=== PATIENT | male | born 1960 | race African-American/Black ===

== ENCOUNTER 2017-01-31 19:35 | Emergency (ER) | payer MEDICARE, OTHER ==
[~2017-01-31] VITALS: Ht 182.9 cm; Wt 125.0 kg
[~2017-01-31 19:35] MED LIST: ALBU8I INH; ASPI81 CHEW; ATOR40TA49 PO; BROM2.5 PO; CARV12.5 PO; COLC1TAB7 PO; DIOV160T8 PO; ELVITAB PO; HALO5 PO; HCTZ25 PO; INDO50 PO; ISOS60 PO; NITR0.4S SL; OMEP20TA39 PO; SIME80 PO; SYMB160A INH
[2017-01-31 19:38] VITALS: BP 134/92; PULSE 85; RESP 18; TEMP 98.9; O2SAT 100
[2017-01-31 21:24] VITALS: BP 129/77; PULSE 80; RESP 20; O2SAT 99
--- NOTE | 2017-01-31 21:41 | PD ---
HPI Chief Complaint: Abdominal Pain Time Seen by Provider: 21:21 Travel History International Travel<30 days: No Contact w/Intl Traveler<30days: No Traveled to known affect area: No History of Present Illness HPI Patient comes in complaining of abdominal distention secondary to ascites. Patient states he last had this drained proximally 4 months ago. Patient states he went to see his HIV doctor today, but was unable to get seen so came to the emergency department secondary to having worsening ascites and bilateral lower extremity edema. Patient reports over the past week his legs been getting more swollen and starting to weep. Patient reports over the past 3 days his abdomen has become more swollen making it more difficult for him to breathe when he lays down flat. Patient states he is taking his Lasix as prescribed however has to have it drained from time to time. PFSH Past Medical History Hx Anticoagulant Therapy: Yes Arthritis: Yes (OA) Asthma: Yes Blood Disorders: No Bipolar Disorder: Yes Anxiety: Yes Depression: Yes Heart Rhythm Problems: Yes Cardiovascular Problems: Yes (HTN) High Cholesterol: Yes Chest Pain: No Congestive Heart Failure: Yes COPD: No Cerebrovascular Accident: Yes Coronary Artery Disease: Yes Diminished Hearing: No Endocrine: Yes Gout: Yes Genitourinary: No Hepatitis: No Hiatal Hernia: No Hypertension: Yes Immune Disorder: Yes (HIV+) Implanted Vascular Access Dvce: No Musculoskeletal: Yes (Right knee) Neurologic: Yes (CARPAL TUNNEL, LEFT HEMIPARESIS) Reproductive: No Respiratory: Yes Immunizations Current: Yes Migraines: No Myocardial Infarction: Yes Renal Failure: Yes Sleep Apnea: Yes Ulcer: No Past Surgical History Abdominal Surgery: No Cardiac Surgery: No Ear Surgery: No Endocrine Surgery: No Eye Surgery: Yes Genitourinary Surgery: No Gynecologic Surgery: No Neurologic Surgery: No Oral Surgery: No Thoracic Surgery: No Other Surgery: Yes (HERNIA) Social History Alcohol Use: Yes (occasionally) Tobacco Use: No Substance Use: Yes (cocaine) Allergies-Medications (Allergen,Severity, Reaction): Coded Allergies: wheat (Unverified Allergy, Severe, 01/31/17) Reported Meds & Prescriptions Reported Meds & Active Scripts Active Aspirin Low Strength (Aspirin) 81 Mg Chw 81 Mg CHEW DAILY 30 Days Indocin 50 Mg Cap (Indomethacin) 50 Mg Cap 50 Mg PO TID 10 Days Hydrodiuril (Hydrochlorothiazide) 25 Mg Tab 25 Mg PO DAILY 30 Days Lipitor 40 Mg Tab (Atorvastatin Calcium) 40 Mg Tab 40 Mg PO HS 30 Days Imdur 60 Mg (Isosorbide Mononitrate) 60 Mg Tabcr 30 Mg PO DAILY Colcrys (Colchicine) 0.6 Mg Tab 0.6 Mg PO DAILY Take 2 tablets by mouth immediately today Then take one table by mouth one hour later Start taking medication by mouth daily starting tomorrow Coreg 12.5 mg (Carvedilol) 12.5 Mg Tab 12.5 Mg PO BID 30 Days Diovan Hct 160/25 (HCTZ/Valsartan) Tab 1 Tab PO DAILY 30 Days Haldol (Haloperidol) 5 Mg Tab 5 Mg PO BID 10 Days Simethicone 80 Mg Chew 80 Mg PO QID Stribild (Bykfqlcpeurh-Cteeswbkjm-Tmtyro) 1 Tab Tab 1 Tab PO DAILY Symbicort (Budesonide/Formoterol Fumarate) 60 Puff Aero 2 Puff INH BID Ventolin Hfa (Albuterol Sulfate) 60 Puff/8 Gm Aero 2 Puff INH Q4H PRN Reported Parlodel (Bromocriptine Mesylate) 2.5 Mg Tab 2.5 Mg PO BID Hm Omeprazole (Omeprazole) 20 Mg Tab 40 Mg PO DAILY Nitrostat (Nitroglycerin) 0.4 Mg Subl 0.4 Mg SL PRN 1 TAB SL EVERY 5 MINS X 3 PRN CHEST PAIN Review of Systems Except as stated in HPI: all other systems reviewed are Neg Physical Exam Narrative GENERAL: Well-developed, overly nourished, in no acute distress, and non-ill appearing. SKIN: Focused skin assessment warm and dry. HEAD: Atraumatic. Normocephalic. EYES: Pupils equal and round. EOMI. No scleral icterus. No injection or drainage. ENT: No nasal bleeding or discharge. Mucous membranes pink and moist. NECK: Trachea midline. Supple. No nuclear rigidity. CARDIOVASCULAR: Regular rate and rhythm. No murmur appreciated. RESPIRATORY: No accessory muscle use. No respiratory distress. Clear to auscultation. Breath sounds equal bilaterally. GASTROINTESTINAL: Abdomen soft, non-tender, distended with ascites, and no guarding. Hepatic and splenic margins not palpable. No pulsatile mass. MUSCULOSKELETAL: No obvious deformities. No clubbing. No cyanosis. 3+ edema bilateral lower extremities. Full range of motion. NEUROLOGICAL: Awake and alert. No obvious cranial nerve deficits. Motor grossly within normal limits. Normal speech. PSYCHIATRIC: Appropriate mood and affect; insight and judgment normal. Data Data Last Documented VS Vital Signs Date Time Temp Pulse Resp B/P (MAP) Pulse Ox O2 Delivery O2 Flow Rate FiO2 02/01/17 01:36 82 18 134/78 (96) 98 Room Air 01/31/17 19:38 98.9 Orders Orders Basic Metabolic Panel (Bmp) (01/31/17 21:36) Complete Blood Count With Diff (01/31/17 21:36) Prothrombin Time / Inr (Pt) (01/31/17 21:36) Act Partial Throm Time (Ptt) (01/31/17 21:36) Iv Access Insert/Monitor (01/31/17 21:36) Ecg Monitoring (01/31/17 21:36) Oximetry (01/31/17 21:36) Sodium Chloride 0.9% Flush (Ns Flush) (01/31/17 21:45) Ed Discharge Order (02/01/17 01:29) Labs Laboratory Tests Test 01/31/17 22:20 White Blood Count 4.6 TH/MM3 Red Blood Count 3.98 MIL/MM3 Hemoglobin 13.3 GM/DL Hematocrit 41.1 % Mean Corpuscular Volume 103.2 FL Mean Corpuscular Hemoglobin 33.3 PG Mean Corpuscular Hemoglobin Concent 32.3 % Red Cell Distribution Width 17.4 % Platelet Count 194 TH/MM3 Mean Platelet Volume 8.2 FL Neutrophils (%) (Auto) 65.8 % Lymphocytes (%) (Auto) 21.4 % Monocytes (%) (Auto) 9.4 % Eosinophils (%) (Auto) 1.4 % Basophils (%) (Auto) 2.0 % Neutrophils # (Auto) 3.0 TH/MM3 Lymphocytes # (Auto) 1.0 TH/MM3 Monocytes # (Auto) 0.4 TH/MM3 Eosinophils # (Auto) 0.1 TH/MM3 Basophils # (Auto) 0.1 TH/MM3 CBC Comment DIFF FINAL Differential Comment Prothrombin Time 11.9 SEC Prothromb Time International Ratio 1.1 RATIO Activated Partial Thromboplast Time 23.8 SEC Blood Urea Nitrogen 34 MG/DL Creatinine 1.59 MG/DL Random Glucose 73 MG/DL Calcium Level 8.0 MG/DL Sodium Level 134 MEQ/L Potassium Level 5.1 MEQ/L Chloride Level 109 MEQ/L Carbon Dioxide Level 17.5 MEQ/L Anion Gap 8 MEQ/L Estimat Glomerular Filtration Rate 55 ML/MIN MDM Medical Decision Making Medical Screen Exam Complete: Yes Emergency Medical Condition: Yes Differential Diagnosis Electrolyte abnormality, ascites, dependent edema, other Narrative Course Patient was seen and examined. IV was established and patient was placed on cardiac monitoring. Initial laboratory values were ordered. Patient was signed out to Dr. Connors at the end of my shift. Please see her documentation for final diagnosis and disposition. Porfirio Do Jan 31, 2017 21:41
[2017-01-31 21:45] VITALS: RESP 18; O2SAT 98
[2017-01-31] MEDS ORDERED: SODIUM CHLORIDE 0.9% FLUSH 10 ML FLUSH IV FLUSH PRN (21:45)
[2017-01-31 22:31] LABS: BASOPHIL # 0.1 TH/MM3 (0-0.2); EOSINOPHIL # 0.1 TH/MM3 (0-0.4); EOSINOPHIL % 1.4 % (0.0-4.0); HEMATOCRIT 41.1 % (39.0-51.0); HEMO FLAGS DIFF FINAL; LYMPH % 21.4 % (9.0-44.0); MEAN CELL VOLUME 103.2 FL (80.0-100.0); MEAN CORPUSCULAR HEMOGLOBIN 33.3 PG (27.0-34.0); MEAN CORPUSCULAR HGB CONC 32.3 % (32.0-36.0); MONO % 9.4 % (0.0-8.0); NEUT % 65.8 % (16.0-70.0); PLATELET COUNT 194 TH/MM3 (150-450); RED BLOOD COUNT 3.98 MIL/MM3 (4.50-5.90); RED CELL DISTRIBUTION WIDTH 17.4 % (11.6-17.2); WHITE BLOOD COUNT 4.6 TH/MM3 (4.0-11.0)
[2017-01-31 22:48] LABS: BICARBONATE 17.5 MEQ/L (21.0-32.0); POTASSIUM 5.1 MEQ/L (3.5-5.1)
[2017-01-31 22:55] LABS: APTT (PATIENT) 23.8 SEC (24.3-30.1); INTERNATIONAL NORMALIZED RATIO 1.1 RATIO; PROTHROMBIN TIME - PATIENT 11.9 SEC (9.8-11.6)
--- NOTE | 2017-02-01 00:53 | PD ---
Physical Exam Narrative I, Dr. Connors, have reviewed the advance practice practitioner's documentation and am in agreement, met with the patient face to face, made the diagnosis, and the medical decision making was done by me. *My assessment and Findings: Ascites 56yo M with ascites here requesting paracentesis. Said he gets it done every 3- 4 months. Denies any fever, chest pain, sob, n/v. Pt is on the phone, chewing gum and not in distress. Vital signs stable. Labs reviewed, no leukocytosis. Platelet count normal at 194. Creatinine mildly elevated at 1.59 from 1.33. Pt is stable for outpatient paracentesis. I wrote an outpatient referral for paracentesis at radiology and pt can call for appointment tomorrow. Return precautions given. Data Data Last Documented VS Vital Signs Date Time Temp Pulse Resp B/P (MAP) Pulse Ox O2 Delivery O2 Flow Rate FiO2 01/31/17 21:24 80 20 129/77 (94) 99 Room Air 01/31/17 19:38 98.9 Orders Orders Basic Metabolic Panel (Bmp) (01/31/17 21:36) Complete Blood Count With Diff (01/31/17 21:36) Prothrombin Time / Inr (Pt) (01/31/17 21:36) Act Partial Throm Time (Ptt) (01/31/17 21:36) Iv Access Insert/Monitor (01/31/17 21:36) Ecg Monitoring (01/31/17 21:36) Oximetry (01/31/17 21:36) Sodium Chloride 0.9% Flush (Ns Flush) (01/31/17 21:45) Labs Laboratory Tests Test 01/31/17 22:20 White Blood Count 4.6 TH/MM3 Red Blood Count 3.98 MIL/MM3 Hemoglobin 13.3 GM/DL Hematocrit 41.1 % Mean Corpuscular Volume 103.2 FL Mean Corpuscular Hemoglobin 33.3 PG Mean Corpuscular Hemoglobin Concent 32.3 % Red Cell Distribution Width 17.4 % Platelet Count 194 TH/MM3 Mean Platelet Volume 8.2 FL Neutrophils (%) (Auto) 65.8 % Lymphocytes (%) (Auto) 21.4 % Monocytes (%) (Auto) 9.4 % Eosinophils (%) (Auto) 1.4 % Basophils (%) (Auto) 2.0 % Neutrophils # (Auto) 3.0 TH/MM3 Lymphocytes # (Auto) 1.0 TH/MM3 Monocytes # (Auto) 0.4 TH/MM3 Eosinophils # (Auto) 0.1 TH/MM3 Basophils # (Auto) 0.1 TH/MM3 CBC Comment DIFF FINAL Differential Comment Prothrombin Time 11.9 SEC Prothromb Time International Ratio 1.1 RATIO Activated Partial Thromboplast Time 23.8 SEC Blood Urea Nitrogen 34 MG/DL Creatinine 1.59 MG/DL Random Glucose 73 MG/DL Calcium Level 8.0 MG/DL Sodium Level 134 MEQ/L Potassium Level 5.1 MEQ/L Chloride Level 109 MEQ/L Carbon Dioxide Level 17.5 MEQ/L Anion Gap 8 MEQ/L Estimat Glomerular Filtration Rate 55 ML/MIN MDM Supervised Visit with COREY: Yes Diagnosis Primary Impression: Ascites Qualified Codes: R18.8 - Other ascites Patient Instructions: General Instructions Departure Forms: Tests/Procedures Additional Instruction: Please call centralized scheduling at [phone] for appointment for paracentesis today at radiology at [facility] professional building. Return to the ED if symptoms worsen. Med/Other Pt SpecificInfo: No Change to Meds Disposition: 01 DISCHARGE HOME Condition: Stable Sarahy Connors DO Feb 01, 2017 00:53
[2017-02-01 01:36] VITALS: BP 134/78; PULSE 82; RESP 18; O2SAT 98
== END 2017-02-01 01:37 | disposition home or self-care (01) ==
LOC: NEPE 19:35
DX: R18.8 Other ascites (principal); B20 Human immunodeficiency virus [HIV] disease; J45.909 Unspecified asthma, uncomplicated; F31.9 Bipolar disorder, unspecified; F41.9 Anxiety disorder, unspecified; E78.5 Hyperlipidemia, unspecified; I11.0 Hypertensive heart disease with heart failure; I50.9 Heart failure, unspecified; I25.10 Atherosclerotic heart disease of native coronary artery without angina pectoris; I25.2 Old myocardial infarction; Z79.82 Long term (current) use of aspirin; Z79.899 Other long term (current) drug therapy
CPT/HCPCS: 80048; 85025; 85610; 85730; 99283

== ENCOUNTER 2017-02-06 10:17 | Day surgery (SDC) | payer OTHER ==
[2017-02-06 11:08] VITALS: BP 114/81; PULSE 85; RESP 20; TEMP 96.9; O2SAT 100
[2017-02-06 12:45] VITALS: BP 107/88; PULSE 82; RESP 20; TEMP 98.2; O2SAT 98
[2017-02-06 13:00] VITALS: BP 114/86; PULSE 78; RESP 20; O2SAT 98
[2017-02-06 13:15] VITALS: BP 106/85; PULSE 80; RESP 20; O2SAT 97
[2017-02-06] MEDS ORDERED: LIDOCAINE HCL 1% PF 30 ML VIAL ONE (14:49)
--- NOTE | 2017-02-06 16:21 | PD.RAD ---
Post US Procedure Prog Note Pre Procedure Diagnosis: (1) Ascites Post Procedure Diagnosis: (1) Ascites Procedure Date: Feb 06, 2017 Supervising Radiologist: David Arciniega Estimated blood loss: none Anesthesia: Local Plan of Activity Patient to Unit: ROPU Patient Condition: Good See PACS Report for procedural detail/treatment Drainage Procedure Procedure 1 Imaging Guidance: Ultrasound Side: Right Procedure Type: Paracentesis Fluid Removal (CCs): 4200 Fluid Description: Yellow, White Plan to ROPU then discharge. David Arciniega MD Feb 06, 2017 16:20
--- NOTE | 2017-02-06 16:22 | RADRPT ---
EXAM DATE/TIME: 02/06/2017 10:36 [place] COMPARISON: No previous studies available for comparison. INDICATIONS : Ascites. MEDICAL HISTORY : Congestive heart failure. Hypercholesterolemia. Myocardial infarction. Cerebrovascular accident. Cor onary artery disease. Anticoagulant therapy. Irregular heartbeat. Hypertension. Asthma. Sleep apnea. HIV. Renal failure. Osteoarthritis. Gout. Diabetes. PTSD. Bipolar disorder. Depression. Anxiety. SURGICAL HISTORY : Hernia repair. Carpal tunnel release. ENCOUNTER: Initial ACUITY: 4 - 6 months PAIN SCORE: 2/10 LOCATION: Right lower quadrant FLUID: Total volume of 4200 cc of cloudy, yellow fluid was removed. Fluid was discarded. Paracentesis was therapeutic only. Post procedure scanning reveals no hematoma or other complication. TECHNIQUE: 1. Ultrasound guidance for abdominal paracentesis. 2. Paracentesis. The risks, benefits, and alternatives to ultrasound guided paracentesis were explained to the patient in detail including the risk of bleeding and infection. Written and verbal informed consent was obt ained. With the patient on the ultrasound table, ultrasound imaging was used to select the most appropriate approach for paracentesis. Overlying skin was prepped and draped in the usual sterile fashion and wi th a local anesthetic, a dermatotomy was made with an 11 blade scalpel. A 6 [place] [id number] ca theter was introduced into the peritoneal cavity and fluid was collected. The patient tolerated the procedure well and left the ultrasound suite in stable condition. CONCLUSION: Uncomplicated ultrasound guided paracentesis. David Arciniega MD on February 06, 2017 at 16:18 Board Certified Radiologist. This report was verified electronically.
== END 2017-02-06 13:20 | disposition home or self-care (01) ==
LOC: HRAD 10:17 → HRIP 10:21 → HRAD 13:20
PROVIDERS: ATTEND Emergency Medicine
DX: R18.8 Other ascites (principal)
CPT/HCPCS: 49083; C1729

== ENCOUNTER 2017-07-28 04:57 | Emergency (ER) | payer OTHER ==
[~2017-07-28] VITALS: Ht 180.3 cm; Wt 75.0 kg
[2017-07-28 05:09] VITALS: BP 113/72; PULSE 95; RESP 16; TEMP 98.8; O2SAT 97
[2017-07-28] MEDS ORDERED: OLANZapine ODT 5 MG TAB PO ONE (07:15)
[2017-07-28 07:30] VITALS: BP 118/77; PULSE 81; RESP 17; TEMP 98; O2SAT 98
[2017-07-28 07:53] LABS: AUTOMATED NEUTROPHIL # 3.2 TH/MM3 (1.8-7.7); BASOPHIL # 0.1 TH/MM3 (0-0.2); EOSINOPHIL # 0.1 TH/MM3 (0-0.4); EOSINOPHIL % 2.1 % (0.0-4.0); HEMOGLOBIN 12.4 GM/DL (13.0-17.0); LYMPH % 20.3 % (9.0-44.0); LYMPHOCYTE # 1.1 TH/MM3 (1.0-4.8); MEAN CELL VOLUME 98.8 FL (80.0-100.0); MEAN CORPUSCULAR HEMOGLOBIN 33.1 PG (27.0-34.0); MEAN CORPUSCULAR HGB CONC 33.4 % (32.0-36.0); MEAN PLATELET VOLUME 7.9 FL (7.0-11.0); MONO % 17.2 % (0.0-8.0); MONOCYTE # 0.9 TH/MM3 (0-0.9); NEUT % 59.4 % (16.0-70.0); PLATELET COUNT 213 TH/MM3 (150-450); RED BLOOD COUNT 3.74 MIL/MM3 (4.50-5.90); RED CELL DISTRIBUTION WIDTH 15.5 % (11.6-17.2); WHITE BLOOD COUNT 5.4 TH/MM3 (4.0-11.0)
--- NOTE | 2017-07-28 07:55 | PD ---
HPI Chief Complaint: Psychiatric Symptoms Time Seen by Provider: 07:01 Travel History International Travel<30 days: No Contact w/Intl Traveler<30days: No Traveled to known affect area: No History of Present Illness HPI Is a 56-year-old man who presents to the emergency department stating "I have some problems", complaining of feeling suicidal and hearing voices. Reported history of bipolar disorder. Patient states that he is left home, has been using drugs, and wants to kill himself. He states that he has been having increased thoughts of suicide recently. Patient multiple presentations similar in the past. No specific plan. History Past Medical History Narrative Medical Hypertension Seizure disorder Substance abuse Bipolar disorder Social History Alcohol Use: Yes (occasionally) Tobacco Use: Yes Allergies-Medications (Allergen,Severity, Reaction): Coded Allergies: wheat (Unverified Allergy, Severe, 01/31/17) Reported Meds & Prescriptions Reported Meds & Active Scripts Active Review of Systems Except as stated in HPI: all other systems reviewed are Neg Physical Exam Narrative GENERAL: 56-year-old man rocking back and forth bringing his hands with a little bit of psychomotor agitation. SKIN: Focused skin assessment warm/dry. HEAD: Atraumatic. Normocephalic. EYES: Pupils equal and round. No scleral icterus. No injection or drainage. ENT: No nasal bleeding or discharge. Mucous membranes pink and moist. NECK: Trachea midline. No JVD. CARDIOVASCULAR: Regular rate and rhythm. No murmur appreciated. RESPIRATORY: No accessory muscle use. Clear to auscultation. Breath sounds equal bilaterally. GASTROINTESTINAL: Abdomen soft, non-tender, nondistended. Hepatic and splenic margins not palpable. MUSCULOSKELETAL: No obvious deformities. No clubbing. No cyanosis. No edema. NEUROLOGICAL: Awake and alert. No obvious cranial nerve deficits. Motor grossly within normal limits. Normal speech. PSYCHIATRIC: Alternately evasive and agitated, directable and answers questions. Does not appear to be responding to internal stimuli. Endorses dysphoric mood and suicidality. Data Data Last Documented VS Vital Signs Date Time Temp Pulse Resp B/P (MAP) Pulse Ox O2 Delivery O2 Flow Rate FiO2 07/28/17 07:30 89 07/28/17 05:09 98.8 16 113/72 (86) 97 Orders Orders Complete Blood Count With Diff (07/28/17 07:13) Comprehensive Metabolic Panel (07/28/17 07:13) Thyroid Stimulating Hormone (07/28/17 07:13) Psych Screen (07/28/17 07:13) Drug Screen, Random Urine (07/28/17 07:13) Olanzapine Odt (Zyprexa Zydis Odt) (07/28/17 07:15) Labs Laboratory Tests Test 07/28/17 07:30 [facility] Medical Decision Making Medical Screen Exam Complete: Yes Emergency Medical Condition: Yes Differential Diagnosis Adjustment reaction, bipolar disorder, malingering, other Narrative Course Medical decision making This is a 56-year-old man who presents to the emergency department complaining of depression and suicidality and hearing voices. Multiple previous admissions for the same. Also history of polysubstance abuse. Patient has no somatic complaints. He is medically clear for psychiatric evaluation. Diagnosis Primary Impression: Bipolar 1 disorder, depressed, moderate Virgilio Damian MD Jul 28, 2017 07:55
[2017-07-28 08:10] LABS: ALBUMIN 3.5 GM/DL (3.4-5.0); ALT (GPT) 17 U/L (12-78); AST (GOT) 26 U/L (15-37); BICARBONATE 20.3 MEQ/L (21.0-32.0); BLOOD UREA NITROGEN 20 MG/DL (7-18); CALCIUM 9.1 MG/DL (8.5-10.1); CHLORIDE 104 MEQ/L (98-107); CREATININE 1.68 MG/DL (0.60-1.30); GLOMERULAR FILTRATION RATE 51 ML/MIN (>89); GLUCOSE,RANDOM 88 MG/DL (74-106); SODIUM (NA) 135 MEQ/L (136-145)
[2017-07-28 08:20] LABS: ALKALINE PHOSPHATASE 170 U/L (45-117); TOTAL BILIRUBIN ADULT 1.1 MG/DL (0.2-1.0)
[2017-07-28 11:00] VITALS: BP 118/83; PULSE 78; RESP 16; TEMP 97.8; O2SAT 98
[2017-07-28 13:26] VITALS: BP 110/73; PULSE 75; RESP 16; TEMP 98.4; O2SAT 100
[2017-07-28 16:00] VITALS: BP 124/85; PULSE 79; RESP 17; TEMP 97.8; O2SAT 98
[2017-07-28 18:00] VITALS: BP 118/76; PULSE 81; RESP 16; TEMP 97.9; O2SAT 99
[2017-07-29 09:25] VITALS: BP 126/81; PULSE 91; RESP 18; O2SAT 100
--- NOTE | 2017-07-29 12:10 | PD.PSY.CON ---
Provisional Diagnosis Admission Date [place]. Cocaine use disorder, cocaine induced mood disorder History of Present Illness Service Psychiatry Consult Requested By ER Reason for Consult Detox Primary Care Physician [facility] HPI The patient is a 56-year-old -[place] man, homeless, unemployed, but , supported by [facility], with psychiatric history of bipolar disorder, cocaine use disorder, previous hospitalizations, suicide attempts, medical history hypertension, who presents to the emergency department stating "I have some problems", complaining of feeling suicidal and hearing voices. Reported history of bipolar disorder. Patient states that he is left home, has been using drugs, and wants to kill himself. He states that he has been having increased thoughts of suicide recently. Patient multiple presentations similar in the past. No specific plan. Today, the patient is calm, cooperative. Patient says that he needs help, he needs a rehab. He denies suicidal and was ideation, he denies visual and auditory hallucinations. Patient is motivated to go to [facility]. Past Family Social History Coded Allergies: No Known Allergies (Verified Allergy, Unknown, 07/28/17) Unable to Obtain Active Prescriptions or Reported Meds Physical Exam Vital Signs Vital Signs Date Time Temp Pulse Resp B/P (MAP) Pulse Ox O2 Delivery O2 Flow Rate FiO2 07/29/17 09:25 91 18 126/81 (96) 100 Room Air 07/28/17 18:00 97.9 I/O 07/29/17 07/29/17 07/30/17 08:00 16:00 00:00 Output Total 700 ml Balance -700 ml Mental Status Examination Appearance: Appropriate Consciousness: Alert Orientation: x4 Motor Activity: Normal gait Speech: Unremarkable Language: Adequate Fund of Knowledge: Adequate Attention and Concentration: Adequate Memory: Unremarkable Mood: Appropriate Affect: Appropriate Thought Process & Associations: Intact Thought Content: Appropriate Hallucination Type: None Delusion Type: None Suicidal Ideation: No Suicidal Plan: No Suicidal Intention: No Homicidal Ideation: No Homicidal Plan: No Homicidal Intention: No Insight: Adequate Judgment: Adequate Assessment & Plan Problem List: (1) Drug-induced mood disorder ICD Codes: F19.94 - Other psychoactive substance use, unspecified with psychoactive substance-induced mood disorder Status: Acute Assessment & Plan: On psychiatric evaluation today the patient does not present any symptomatology of depression, anxiety, rene or psychosis. The patient denies suicidal and homicidal ideation, he denies visual and auditory hallucinations. The patient admits that he needs to go to comprehensive rehab. He does not meet criteria for involuntary psychiatric admission Assessment & Plan Estimated LOS: days Tejinder Grubbs MD Jul 29, 2017 12:10
--- NOTE | 2017-07-29 15:32 | PD ---
Physical Exam Narrative Patient was seen by ED physician and psychiatrist. Patient cleared to be discharged. Data Data Last Documented VS Vital Signs Date Time Temp Pulse Resp B/P (MAP) Pulse Ox O2 Delivery O2 Flow Rate FiO2 07/29/17 09:25 91 18 126/81 (96) 100 Room Air 07/28/17 18:00 97.9 Orders Orders Complete Blood Count With Diff (07/28/17 07:13) Comprehensive Metabolic Panel (07/28/17 07:13) Thyroid Stimulating Hormone (07/28/17 07:13) Psych Screen (07/28/17 07:13) Drug Screen, Random Urine (07/28/17 07:13) Olanzapine Odt (Zyprexa Zydis Odt) (07/28/17 07:15) Diet Regular Basic (07/28/17 Dinner) Diet Regular Basic (07/29/17 Breakfast) Ed Discharge Order (07/29/17 14:58) Labs Laboratory Tests Test 07/28/17 07:30 07/28/17 11:00 White Blood Count 5.4 TH/MM3 Red Blood Count 3.74 MIL/MM3 Hemoglobin 12.4 GM/DL Hematocrit 37.0 % Mean Corpuscular Volume 98.8 FL Mean Corpuscular Hemoglobin 33.1 PG Mean Corpuscular Hemoglobin Concent 33.4 % Red Cell Distribution Width 15.5 % Platelet Count 213 TH/MM3 Mean Platelet Volume 7.9 FL Neutrophils (%) (Auto) 59.4 % Lymphocytes (%) (Auto) 20.3 % Monocytes (%) (Auto) 17.2 % Eosinophils (%) (Auto) 2.1 % Basophils (%) (Auto) 1.0 % Neutrophils # (Auto) 3.2 TH/MM3 Lymphocytes # (Auto) 1.1 TH/MM3 Monocytes # (Auto) 0.9 TH/MM3 Eosinophils # (Auto) 0.1 TH/MM3 Basophils # (Auto) 0.1 TH/MM3 CBC Comment DIFF FINAL Differential Comment Blood Urea Nitrogen 20 MG/DL Creatinine 1.68 MG/DL Random Glucose 88 MG/DL Total Protein 9.0 GM/DL Albumin 3.5 GM/DL Calcium Level 9.1 MG/DL Alkaline Phosphatase 170 U/L Aspartate Amino Transf (AST/SGOT) 26 U/L Alanine Aminotransferase (ALT/SGPT) 17 U/L Total Bilirubin 1.1 MG/DL Sodium Level 135 MEQ/L Potassium Level 3.9 MEQ/L Chloride Level 104 MEQ/L Carbon Dioxide Level 20.3 MEQ/L Anion Gap 11 MEQ/L Estimat Glomerular Filtration Rate 51 ML/MIN Thyroid Stimulating Hormone 3rd Gen 1.960 uIU/ML Urine Opiates Screen NEG Urine Barbiturates Screen NEG Urine Amphetamines Screen NEG Urine Benzodiazepines Screen NEG Urine Cocaine Screen POS Urine Cannabinoids Screen NEG MDM Supervised Visit with COREY: No Narrative Course Patient is cleared by ED physician and psychiatric team to be discharged. Diagnosis Primary Impression: Bipolar 1 disorder, depressed, moderate Patient Instructions: General Instructions Additional Instruction: Follow-up with local physician. Follow-up with [facility]. Med/Other Pt SpecificInfo: No Meds Exist/No RX given Scripts Unable to Obtain Active Prescriptions or Reported Meds Disposition: 01 DISCHARGE HOME Condition: Stable Miguel Miller MD Jul 29, 2017 15:32
[2017-07-29 15:46] VITALS: BP 135/79; PULSE 80; RESP 20; O2SAT 99
[2017-07-30] MEDS ORDERED: AZIT250T3 PO (14:44)
== END 2017-07-29 16:23 | disposition home or self-care (01) ==
LOC: NEPE 04:57
DX: F31.32 Bipolar disorder, current episode depressed, moderate (principal)
CPT/HCPCS: 80053; 80307; 84443; 85025; 99283

== ENCOUNTER 2017-07-29 17:35 | Emergency (ER) | payer OTHER ==
[~2017-07-29] VITALS: Ht 182.9 cm; Wt 90.0 kg
[2017-07-29 17:40] VITALS: BP 124/81; PULSE 104; RESP 24; TEMP 99.5; O2SAT 100
[2017-07-29 19:05] VITALS: BP 92/42; PULSE 80; RESP 18; O2SAT 100
--- NOTE | 2017-07-29 19:08 | PD ---
HPI Chief Complaint: Psychiatric Symptoms Time Seen by Provider: 19:07 Travel History International Travel<30 days: No Contact w/Intl Traveler<30days: No Traveled to known affect area: No History of Present Illness HPI 56-year-old male presents emergency department for psychiatric evaluation. Patient was seen, evaluated by psychiatry, and discharge this morning. He was supposed to go to [facility]. He tells me that they have no beds and they advised to come back in the morning. Patient states that he does use illicit drugs at times. Denies any recent illnesses, fever, chills. States he has been depressed and having suicidal thoughts. No other symptoms to report. PFSH Past Medical History Hx Anticoagulant Therapy: Yes Arthritis: Yes (OA) Asthma: Yes Blood Disorders: No Bipolar Disorder: Yes Anxiety: Yes Depression: Yes Heart Rhythm Problems: Yes Cardiovascular Problems: Yes (HTN) High Cholesterol: Yes Chest Pain: No Congestive Heart Failure: Yes COPD: No Cerebrovascular Accident: Yes Coronary Artery Disease: Yes Diminished Hearing: No Endocrine: Yes Gout: Yes Genitourinary: No Hepatitis: No Hiatal Hernia: No Hypertension: Yes Immune Disorder: Yes (HIV+) Implanted Vascular Access Dvce: No Musculoskeletal: Yes (Right knee) Neurologic: Yes (CARPAL TUNNEL, LEFT HEMIPARESIS) Reproductive: No Respiratory: Yes Immunizations Current: Yes Migraines: No Myocardial Infarction: Yes Renal Failure: Yes Sleep Apnea: Yes Ulcer: No Past Surgical History Abdominal Surgery: No Cardiac Surgery: No Ear Surgery: No Endocrine Surgery: No Eye Surgery: Yes Genitourinary Surgery: No Gynecologic Surgery: No Neurologic Surgery: No Oral Surgery: No Thoracic Surgery: No Other Surgery: Yes (HERNIA) Social History Alcohol Use: Yes (occasionally) Tobacco Use: Yes Substance Use: Yes (cocaine, LAST USED 07/27/17) Allergies-Medications (Allergen,Severity, Reaction): Coded Allergies: No Known Allergies (Verified Allergy, Unknown, 07/28/17) Reported Meds & Prescriptions Reported Meds & Active Scripts Active Active Prescriptions or Reported Medications Unobtainable Review of Systems Except as stated in HPI: all other systems reviewed are Neg Physical Exam Narrative GENERAL: Well-nourished male patient, in no acute distress. SKIN: Focused skin assessment warm/dry. HEAD: Atraumatic. Normocephalic. EYES: Pupils equal and round. No scleral icterus. No injection or drainage. ENT: No nasal bleeding or discharge. Mucous membranes pink and moist. NECK: Trachea midline. No JVD. CARDIOVASCULAR: Regular rate and rhythm. No murmur appreciated. RESPIRATORY: No accessory muscle use. Clear to auscultation. Breath sounds equal bilaterally. GASTROINTESTINAL: Abdomen soft, non-tender, nondistended. Hepatic and splenic margins not palpable. MUSCULOSKELETAL: No obvious deformities. No clubbing. No cyanosis. No edema. NEUROLOGICAL: Awake and alert. No obvious cranial nerve deficits. Motor grossly within normal limits. Normal speech. Data Data Last Documented VS Vital Signs Date Time Temp Pulse Resp B/P (MAP) Pulse Ox O2 Delivery O2 Flow Rate FiO2 07/30/17 00:59 99.1 97 18 122/58 (79) 97 Room Air Orders Orders Drug Screen, Random Urine (07/29/17 17:57) Psych Screen (07/29/17 17:57) Labs Laboratory Tests Test 07/29/17 18:35 Urine Opiates Screen NEG Urine Barbiturates Screen NEG Urine Amphetamines Screen NEG Urine Benzodiazepines Screen NEG Urine Cocaine Screen POS Urine Cannabinoids Screen POS MDM Medical Decision Making Medical Screen Exam Complete: Yes Emergency Medical Condition: Yes Medical Record Reviewed: Yes Differential Diagnosis Mood disorder versus personality disorder versus adjustment reaction disorder Narrative Course 56-year-old male presents emergency department for psychiatric evaluation. Patient has been seen and evaluated within the last 24 hours. He has no acute medical needs. He is medically cleared to undergo psychiatric screening for further evaluation and disposition. Mental health screening discussed with the patient. Psychiatric screen ordered. Diagnosis Primary Impression: Adjustment disorder with mixed emotional features Scripts Unable to Obtain Active Prescriptions or Reported Meds Condition: Stable Rosalba Leos Jul 29, 2017 19:08
[2017-07-29 20:02] VITALS: BP 108/62; PULSE 91; RESP 18
[2017-07-30 00:59] VITALS: BP 122/58; PULSE 97; RESP 18; TEMP 99.1; O2SAT 97
[2017-07-30 06:15] VITALS: BP 99/61; PULSE 80; RESP 18; TEMP 96.9; O2SAT 98
--- NOTE | 2017-07-30 10:20 | PD ---
Physical Exam Date Seen by Provider: Jul 30, 2017 Time Seen by Provider: 10:16 Narrative 56-year-old male previously medically cleared for psychiatric evaluation, has been seen by psychiatric staff and deemed to be psychiatrically stable for discharge. He remains medically stable at this time. It is recommended the patient follow-up with [facility]. Further psychiatric follow-up will be based on the psychiatric note. Data Data Last Documented VS Vital Signs Date Time Temp Pulse Resp B/P (MAP) Pulse Ox O2 Delivery O2 Flow Rate FiO2 07/30/17 06:15 96.9 80 18 99/61 (74) 98 Room Air Orders Orders Drug Screen, Random Urine (07/29/17 17:57) Psych Screen (07/29/17 17:57) Diet Regular Basic (07/30/17 Breakfast) Labs Laboratory Tests Test 07/29/17 18:35 Urine Opiates Screen NEG Urine Barbiturates Screen NEG Urine Amphetamines Screen NEG Urine Benzodiazepines Screen NEG Urine Cocaine Screen POS Urine Cannabinoids Screen POS MDM Medical Record Reviewed: Yes Supervised Visit with [facility]: Yes Narrative Course 56-year-old male previously medically cleared for psychiatric evaluation, has been seen by psychiatric staff and deemed to be psychiatrically stable for discharge. He remains medically stable at this time. It is recommended the patient follow-up with [facility]. Further psychiatric follow-up will be based on the psychiatric note. Diagnosis Primary Impression: Adjustment disorder with mixed emotional features Referrals: [facility] Instructions: Abuse of Alcohol (ED), General Instructions Scripts Unable to Obtain Active Prescriptions or Reported Meds Disposition: 01 DISCHARGE HOME Condition: Stable Erickson Emerson Jul 30, 2017 10:20
--- NOTE | 2017-07-30 12:56 | PD.PSY.CON ---
Provisional Diagnosis Admission Date [place] I. Substance-induced mood disorder, cocaine and cannabis use disorder [place] II. Antisocial personality disorder History of Present Illness Service Psychiatry Consult Requested By ER Reason for Consult Under Lobo act Primary Care Physician [facility] HPI The patient is 56-year-old -[place]ian man, homeless, single, unemployed, , very well known by our service, multiple ER visits with similar presentation, usually intoxicated with cocaine and cannabis history of noncompliance with medications and psychiatric recommendations he was just discharged yesterday from the ER, who presents emergency department for psychiatric evaluation. "Patient was seen, evaluated by psychiatry, and discharge this morning. He was supposed to go to [facility]. He tells me that they have no beds and they advised to come back in the morning. Patient states that he does use illicit drugs at times. Denies any recent illnesses, fever, chills. States he has been depressed and having suicidal thoughts. No other symptoms to report",. The patient reports that on psychiatric evaluation today the patient reports that he is here because he needs to be transferred to [facility] in [facility] for comprehensive rehabilitation. He denies suicidal and homicidal ideation at this moment, he denies visual and auditory hallucinations at this moment. When I confronted the patient and told him that he needs to go by himself to [facility] and [facility] for rehab, he became infuriated, verbally hostile and loud. Past Family Social History Coded Allergies: No Known Allergies (Verified Allergy, Unknown, 07/28/17) Unable to Obtain Active Prescriptions or Reported Meds Physical Exam Vital Signs Vital Signs Date Time Temp Pulse Resp B/P (MAP) Pulse Ox O2 Delivery O2 Flow Rate FiO2 07/30/17 10:44 07/30/17 06:15 96.9 80 18 98 Room Air Lab Results Test 07/29/17 18:35 Urine Opiates Screen NEG Urine Barbiturates Screen NEG Urine Amphetamines Screen NEG Urine Benzodiazepines Screen NEG Urine Cocaine Screen POS Urine Cannabinoids Screen POS Mental Status Examination Appearance: Appropriate Consciousness: Alert Orientation: x4 Motor Activity: Normal gait Speech: Unremarkable Language: Adequate Fund of Knowledge: Adequate Attention and Concentration: Adequate Memory: Unremarkable Mood: Appropriate Affect: Appropriate Thought Process & Associations: Intact Thought Content: Appropriate Hallucination Type: None Delusion Type: None Suicidal Ideation: No Suicidal Plan: No Suicidal Intention: No Homicidal Ideation: No Homicidal Plan: No Homicidal Intention: No Insight: Adequate Judgment: Adequate Assessment & Plan Problem List: (1) Antisocial personality disorder ICD Codes: F60.2 - Antisocial personality disorder Status: Acute Assessment & Plan: Patient does not meet criteria for involuntary psychiatric admission. The patient is looking to engage in a rehabilitation program, unfortunately this is not a service that we offer at [facility]. He does not meet criteria for involuntary psychiatric admission at this moment. Lobo act will be lifted and patient would be helped to get TO [facility]. Assessment & Plan Estimated LOS: Tejinder Stark MD Jul 30, 2017 12:56
[2017-07-30] MEDS ORDERED: AZIT250T3 PO (14:44)
== END 2017-07-30 10:39 | disposition home or self-care (01) ==
LOC: NEPJ 17:35
DX: F43.23 Adjustment disorder with mixed anxiety and depressed mood (principal); F60.2 Antisocial personality disorder; F14.90 Cocaine use, unspecified, uncomplicated; F12.90 Cannabis use, unspecified, uncomplicated; I25.10 Atherosclerotic heart disease of native coronary artery without angina pectoris; I11.0 Hypertensive heart disease with heart failure; I50.9 Heart failure, unspecified; N19 Unspecified kidney failure; E78.00 Pure hypercholesterolemia, unspecified; I25.2 Old myocardial infarction; J45.909 Unspecified asthma, uncomplicated; M19.90 Unspecified osteoarthritis, unspecified site; F31.9 Bipolar disorder, unspecified; Z86.73 Personal history of transient ischemic attack (TIA), and cerebral infarction without residual deficits; Z21 Asymptomatic human immunodeficiency virus [HIV] infection status; Z72.0 Tobacco use; Z59.0 Homelessness
CPT/HCPCS: 80307; 99283

== ENCOUNTER 2017-07-30 12:20 | Emergency (ER) | payer OTHER ==
[2017-07-30 12:27] VITALS: BP 115/66; PULSE 18; PULSE 90; RESP 20; TEMP 98.7; O2SAT 100
--- NOTE | 2017-07-30 13:28 | RADRPT ---
EXAM DATE/TIME: 07/30/2017 13:09 [facility] COMPARISON: CHEST PA & LAT, December 24, 2015, 10:53. INDICATIONS : Cough. MEDICAL HISTORY : Congestive heart failure. Hypercholesterolemia. Myocardial infarction. SURGICAL HISTORY : CABG. Cardiac Stents ENCOUNTER: Initial ACUITY: 4 - 6 days PAIN SCORE: 0/10 LOCATION: Bilateral chest FINDINGS: Portable AP view of the chest demonstrates mildly enlarged cardiac silhouette. Left chest wall cardia c pacing device/AICD is present. Lungs are underinflated with mild atelectasis at the left lung base. No effusion, consolidation, or pneumothorax is present. Bones and soft tissues demonstrate no acute finding. CONCLUSION: No acute cardiopulmonary abnormality is identified. Cardiac silhouette remains mildly enlarged. David Arciniega MD on July 30, 2017 at 13:24 Board Certified Radiologist. This report was verified electronically.
--- NOTE | 2017-07-30 13:36 | PD ---
HPI Chief Complaint: Cardiac Complaint Time Seen by Provider: 13:21 Travel History International Travel<30 days: No Contact w/Intl Traveler<30days: No Traveled to known affect area: No History of Present Illness HPI 56-year-old male presents under Lobo act initiated at the [facility] today. According to his paperwork, " states "I do not want to live anymore... I am tired of living... If I find a truck, I am going to walk right in front of it." The states "I do not have a gun so I cannot do it that way." presents to clinic agitated, angry, depressed." The patient has a history of depression, cocaine and cannabinoid use, bipolar disorder. He was seen here over the past 2 days for psychiatric evaluation. He was released from the psychiatric portion of the ER this morning. He then presented to the [facility] for an appointment and he was placed on another Lobo act. He does report that he feels generally apathetic about life and does not particularly wish to live anymore. He also reports that he has had auditory hallucinations over the past 2 weeks. Most recently he reports that he used cocaine and marijuana 4 days ago. He denies any homicidal ideation. In addition the patient reports that he has had a cough for the past 4-5 days. The cough is productive with green and brown sputum and he is concerned he has pneumonia. He reports that he has some chest wall pain when he coughs. He reports some associated dyspnea. He reports occasional chills. Denies any objective fevers. Denies abdominal pain , nausea or vomiting. Per chart review he has a history of HIV, hypertension, left arm paresis, asthma, CHF, CAD. PFSH Past Medical History Hx Anticoagulant Therapy: Yes Arthritis: Yes (OA) Asthma: Yes Blood Disorders: No Bipolar Disorder: Yes Anxiety: Yes Depression: Yes Heart Rhythm Problems: Yes Cardiovascular Problems: Yes (HTN) High Cholesterol: Yes Chest Pain: No Congestive Heart Failure: Yes COPD: No Cerebrovascular Accident: Yes Coronary Artery Disease: Yes Diminished Hearing: No Endocrine: Yes Gout: Yes Genitourinary: No Hepatitis: No Hiatal Hernia: No Hypertension: Yes Immune Disorder: Yes (HIV+) Implanted Vascular Access Dvce: No Musculoskeletal: Yes (Right knee) Neurologic: Yes (CARPAL TUNNEL, LEFT HEMIPARESIS) Reproductive: No Respiratory: Yes Immunizations Current: Yes Migraines: No Myocardial Infarction: Yes Renal Failure: Yes Sleep Apnea: Yes Ulcer: No Past Surgical History Abdominal Surgery: No Cardiac Surgery: No Ear Surgery: No Endocrine Surgery: No Eye Surgery: Yes Genitourinary Surgery: No Gynecologic Surgery: No Neurologic Surgery: No Oral Surgery: No Thoracic Surgery: No Other Surgery: Yes (HERNIA) Social History Alcohol Use: Yes (occasionally) Tobacco Use: Yes Substance Use: Yes (cocaine, LAST USED 07/27/17) Allergies-Medications (Allergen,Severity, Reaction): Coded Allergies: No Known Allergies (Verified Allergy, Unknown, 07/28/17) Reported Meds & Prescriptions Reported Meds & Active Scripts Active Azithromycin 250 Mg Tab 250 Mg PO DAILY 4 Days Review of Systems Except as stated in HPI: all other systems reviewed are Neg Physical Exam Narrative GENERAL: Well-developed well-nourished male in no acute distress SKIN: Warm and dry. HEAD: Atraumatic. Normocephalic. EYES: Pupils equal and round. No scleral icterus. No injection or drainage. ENT: No nasal bleeding or discharge. Mucous membranes pink and moist. NECK: Trachea midline. No JVD. CARDIOVASCULAR: Regular rate and rhythm. No murmur appreciated. RESPIRATORY: No accessory muscle use. Mild inspiratory wheezing bilaterally. No crackles. GASTROINTESTINAL: Abdomen soft, non-tender, nondistended. Hepatic and splenic margins not palpable. MUSCULOSKELETAL: No obvious deformities. No clubbing. No cyanosis. No edema. NEUROLOGICAL: Awake and alert. No obvious cranial nerve deficits. Motor grossly within normal limits. Normal speech. PSYCHIATRIC: Appropriate mood and affect; insight and judgment normal. Data Data Last Documented VS Vital Signs Date Time Temp Pulse Resp B/P (MAP) Pulse Ox O2 Delivery O2 Flow Rate FiO2 07/30/17 12:27 98.7 90 20 115/66 (82) 100 Orders Orders Electrocardiogram (07/30/17 12:36) Complete Blood Count With Diff (07/30/17 12:36) Comprehensive Metabolic Panel (07/30/17 12:36) Ckmb (Isoenzyme) Profile (07/30/17 12:36) Troponin I (07/30/17 12:36) Prothrombin Time / Inr (Pt) (07/30/17 12:36) Act Partial Throm Time (Ptt) (07/30/17 12:36) Lipase (07/30/17 12:36) Ammonia (07/30/17 12:36) Chest, Single Ap (07/30/17 12:36) Drug Screen, Random Urine (07/30/17 12:36) Alcohol (Ethanol) (07/30/17 12:36) Vascular Access Team Consult/P PRN (07/30/17 12:39) Vascular Poc Ultrasound (07/30/17 ) Albuterol-Ipratropium Neb (Duoneb Neb) (07/30/17 13:45) Psych Screen (07/30/17 13:40) Azithromycin Inj (Zithromax Inj) (07/30/17 14:45) Labs Laboratory Tests Test 07/30/17 13:33 White Blood Count 4.0 TH/MM3 Red Blood Count 3.89 MIL/MM3 Hemoglobin 12.6 GM/DL Hematocrit 38.6 % Mean Corpuscular Volume 99.2 FL Mean Corpuscular Hemoglobin 32.5 PG Mean Corpuscular Hemoglobin Concent 32.7 % Red Cell Distribution Width 15.6 % Platelet Count 199 TH/MM3 Mean Platelet Volume 7.8 FL Neutrophils (%) (Auto) 43.5 % Lymphocytes (%) (Auto) 28.4 % Monocytes (%) (Auto) 23.5 % Eosinophils (%) (Auto) 3.8 % Basophils (%) (Auto) 0.8 % Neutrophils # (Auto) 1.7 TH/MM3 Lymphocytes # (Auto) 1.1 TH/MM3 Monocytes # (Auto) 0.9 TH/MM3 Eosinophils # (Auto) 0.2 TH/MM3 Basophils # (Auto) 0.0 TH/MM3 CBC Comment DIFF FINAL Differential Comment Prothrombin Time 10.7 SEC Prothromb Time International Ratio 1.1 RATIO Activated Partial Thromboplast Time 28.7 SEC Blood Urea Nitrogen 14 MG/DL Creatinine 1.41 MG/DL Random Glucose 73 MG/DL Total Protein 8.0 GM/DL Albumin 2.9 GM/DL Calcium Level 8.4 MG/DL Alkaline Phosphatase 157 U/L Aspartate Amino Transf (AST/SGOT) 21 U/L Alanine Aminotransferase (ALT/SGPT) 15 U/L Total Bilirubin 0.6 MG/DL Sodium Level 139 MEQ/L Potassium Level 3.9 MEQ/L Chloride Level 105 MEQ/L Carbon Dioxide Level 26.1 MEQ/L Anion Gap 8 MEQ/L Estimat Glomerular Filtration Rate 63 ML/MIN Ammonia 17 MCMOL/L Total Creatine Kinase 99 U/L Troponin I LESS THAN 0.02 NG/ML Lipase 213 U/L Ethyl Alcohol Level LESS THAN 3 MG/DL MDM Medical Decision Making Medical Screen Exam Complete: Yes Emergency Medical Condition: Yes Medical Record Reviewed: Yes Differential Diagnosis Pneumonia, PJP, bronchitis, asthma exacerbation Adjustment reaction, major depressive disorder, bipolar disorder, acute psychosis, substance-induced mood disorder Narrative Course The patient was given a DuoNeb treatment. Lab work, chest x-ray ordered. CBC reveals a hemoglobin of 12.6 otherwise unremarkable, CMP reveals a GFR of 73, glucose 73, calcium 8.4 otherwise unremarkable. Chest x-ray is normal. Plan is to treat the patient with azithromycin, first dose provided here. He will be given a prescription for the remaining 4 doses. Mental health screening discussed with the patient. Psychiatric screen ordered. He is medically cleared for psychiatric disposition. Diagnosis Primary Impression: Medical clearance for psychiatric admission Additional Impression: Bronchitis Scripts Azithromycin (Azithromycin) 250 Mg Tab 250 MG PO DAILY for Infection for 4 Days, #4 TAB 0 Refills Prov: Bo Mclean MD 07/30/17 Puneet Hodges Jul 30, 2017 13:36
[2017-07-30] MEDS ORDERED: RESP: ALBUTEROL 2.5 MG/IPRATROPIUM 0.5 MG NEB (SCH) INH ONE (13:45)
[2017-07-30 13:51] LABS: AUTOMATED NEUTROPHIL # 1.7 TH/MM3 (1.8-7.7); BASOPHIL % 0.8 % (0.0-2.0); EOSINOPHIL # 0.2 TH/MM3 (0-0.4); EOSINOPHIL % 3.8 % (0.0-4.0); HEMATOCRIT 38.6 % (39.0-51.0); HEMOGLOBIN 12.6 GM/DL (13.0-17.0); LYMPH % 28.4 % (9.0-44.0); LYMPHOCYTE # 1.1 TH/MM3 (1.0-4.8); MEAN CELL VOLUME 99.2 FL (80.0-100.0); MEAN CORPUSCULAR HEMOGLOBIN 32.5 PG (27.0-34.0); MEAN CORPUSCULAR HGB CONC 32.7 % (32.0-36.0); MEAN PLATELET VOLUME 7.8 FL (7.0-11.0); MONO % 23.5 % (0.0-8.0); MONOCYTE # 0.9 TH/MM3 (0-0.9); NEUT % 43.5 % (16.0-70.0); PLATELET COUNT 199 TH/MM3 (150-450); RED BLOOD COUNT 3.89 MIL/MM3 (4.50-5.90); RED CELL DISTRIBUTION WIDTH 15.6 % (11.6-17.2)
[2017-07-30 14:03] LABS: INTERNATIONAL NORMALIZED RATIO 1.1 RATIO; PROTHROMBIN TIME - PATIENT 10.7 SEC (9.8-11.6)
[2017-07-30 14:09] LABS: ALBUMIN 2.9 GM/DL (3.4-5.0); ALT (GPT) 15 U/L (12-78); AST (GOT) 21 U/L (15-37); BICARBONATE 26.1 MEQ/L (21.0-32.0); BLOOD UREA NITROGEN 14 MG/DL (7-18); CALCIUM 8.4 MG/DL (8.5-10.1); CHLORIDE 105 MEQ/L (98-107); CREATININE 1.41 MG/DL (0.60-1.30); GLOMERULAR FILTRATION RATE 63 ML/MIN (>89); GLUCOSE,RANDOM 73 MG/DL (74-106); SODIUM (NA) 139 MEQ/L (136-145)
[2017-07-30 14:14] LABS: ALKALINE PHOSPHATASE 157 U/L (45-117); TOTAL BILIRUBIN ADULT 0.6 MG/DL (0.2-1.0); TROPONIN I LESS THAN 0.02 NG/ML (0.02-0.05)
[2017-07-30] MEDS ORDERED: AZIT250T3 PO (14:44)
[2017-07-30] MEDS ORDERED: AZITHROMYCIN INJ 500 MG in SODIUM CHLOR 0.9% 250 ML INJ 250 ML IV ONE (14:45)
[2017-07-30 17:00] VITALS: BP 126/54; PULSE 90; RESP 16; O2SAT 98
[2017-07-31 03:35] VITALS: BP 110/62; PULSE 82; RESP 16; O2SAT 98
[2017-07-31 07:30] VITALS: BP 112/68; PULSE 86; RESP 16; O2SAT 98
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
[2017-07-31 12:00] VITALS: BP 115/74; PULSE 78; RESP 16; O2SAT 98
--- NOTE | 2017-07-31 21:40 | EKG ---
Date Performed: 07/30/2017 Time Performed: 12:29:33 PTAGE: 56 years EKG: Sinus rhythm LOW QRS VOLTAGE IN EXTREMITY LEADS BORDERLINE ECG INTERPRETATION BASED ON A DEFAULT AGE OF 40 YEARS PREVIOUS TRACING : 12/24/2015 11.06 Since the previous tracing, no significant change not ed DOCTOR: Asaf Meneses Interpretating Date/Time 07/31/2017 21:38:10
[2017-08-01 00:25] VITALS: BP 127/59; PULSE 87; RESP 20; TEMP 98.7; O2SAT 95
--- NOTE | 2017-08-01 08:42 | PD ---
Physical Exam Time Seen by Provider: 08:[address] Ledezma has evaluated the patient and cleared the patient for discharge. Data Data Last Documented VS Vital Signs Date Time Temp Pulse Resp B/P (MAP) Pulse Ox O2 Delivery O2 Flow Rate FiO2 08/01/17 00:25 98.7 87 20 127/59 (81) 95 Room Air Orders Orders Electrocardiogram (07/30/17 12:36) Complete Blood Count With Diff (07/30/17 12:36) Comprehensive Metabolic Panel (07/30/17 12:36) Ckmb (Isoenzyme) Profile (07/30/17 12:36) Troponin I (07/30/17 12:36) Prothrombin Time / Inr (Pt) (07/30/17 12:36) Act Partial Throm Time (Ptt) (07/30/17 12:36) Lipase (07/30/17 12:36) Ammonia (07/30/17 12:36) Chest, Single Ap (07/30/17 12:36) Drug Screen, Random Urine (07/30/17 12:36) Alcohol (Ethanol) (07/30/17 12:36) Vascular Access Team Consult/P PRN (07/30/17 12:39) Vascular Poc Ultrasound (07/30/17 ) Albuterol-Ipratropium Neb (Duoneb Neb) (07/30/17 13:45) Psych Screen (07/30/17 13:40) Azithromycin Inj (Zithromax Inj) (07/30/17 14:45) Diet Regular Basic (07/30/17 Dinner) Diet Regular Basic (07/31/17 Breakfast) Diet Regular Basic (08/01/17 Dinner) Labs Laboratory Tests Test 07/30/17 12:45 07/30/17 13:33 Urine Opiates Screen NEG Urine Barbiturates Screen NEG Urine Amphetamines Screen NEG Urine Benzodiazepines Screen NEG Urine Cocaine Screen POS Urine Cannabinoids Screen NEG White Blood Count 4.0 TH/MM3 Red Blood Count 3.89 MIL/MM3 Hemoglobin 12.6 GM/DL Hematocrit 38.6 % Mean Corpuscular Volume 99.2 FL Mean Corpuscular Hemoglobin 32.5 PG Mean Corpuscular Hemoglobin Concent 32.7 % Red Cell Distribution Width 15.6 % Platelet Count 199 TH/MM3 Mean Platelet Volume 7.8 FL Neutrophils (%) (Auto) 43.5 % Lymphocytes (%) (Auto) 28.4 % Monocytes (%) (Auto) 23.5 % Eosinophils (%) (Auto) 3.8 % Basophils (%) (Auto) 0.8 % Neutrophils # (Auto) 1.7 TH/MM3 Lymphocytes # (Auto) 1.1 TH/MM3 Monocytes # (Auto) 0.9 TH/MM3 Eosinophils # (Auto) 0.2 TH/MM3 Basophils # (Auto) 0.0 TH/MM3 CBC Comment DIFF FINAL Differential Comment Prothrombin Time 10.7 SEC Prothromb Time International Ratio 1.1 RATIO Activated Partial Thromboplast Time 28.7 SEC Blood Urea Nitrogen 14 MG/DL Creatinine 1.41 MG/DL Random Glucose 73 MG/DL Total Protein 8.0 GM/DL Albumin 2.9 GM/DL Calcium Level 8.4 MG/DL Alkaline Phosphatase 157 U/L Aspartate Amino Transf (AST/SGOT) 21 U/L Alanine Aminotransferase (ALT/SGPT) 15 U/L Total Bilirubin 0.6 MG/DL Sodium Level 139 MEQ/L Potassium Level 3.9 MEQ/L Chloride Level 105 MEQ/L Carbon Dioxide Level 26.1 MEQ/L Anion Gap 8 MEQ/L Estimat Glomerular Filtration Rate 63 ML/MIN Ammonia 17 MCMOL/L Total Creatine Kinase 99 U/L Troponin I LESS THAN 0.02 NG/ML Lipase 213 U/L Ethyl Alcohol Level LESS THAN 3 MG/DL MDM Supervised Visit with COREY: No Narrative Course Dr. Ledezma has evaluated the patient and cleared the patient for discharge. Patient contracts safety. Denies suicidal or homicidal ideations. Patient will be provided community resource packet to [facility] for follow-up. Has friends and family for support. Patient was medically cleared by alternate provider prior to psych screening. Patient has been evaluated by psychiatry and and is now cleared for discharge. Diagnosis Primary Impression: Cocaine abuse Additional Impression: Bronchitis Referrals: [facility] (Out patient) [facility] Primary Care Physician Psychiatrist [facility] Patient Instructions: Acute Bronchitis (ED), Cocaine Abuse (ED), General Instructions, Polysubstance Abuse (ED) Additional Instruction: Contract safety to your self and others Follow-up with psychiatry Follow-up with primary care provider Follow-up with Roverto Dodd Return to the emergency department immediately with worsening of symptoms Med/Other Pt SpecificInfo: Prescription(s) given Scripts Azithromycin (Azithromycin) 250 Mg Tab 250 MG PO DAILY for Infection for 4 Days, #4 TAB 0 Refills Prov: Bo Mclean MD 07/30/17 Disposition: 01 DISCHARGE HOME Condition: Stable Teresa Florence Aug 01, 2017 08:42
== END 2017-08-01 08:57 | disposition home or self-care (01) ==
LOC: NEDAMB 12:20 → NEPJ 08-01 08:57
DX: F60.2 Antisocial personality disorder (principal); F19.10 Other psychoactive substance abuse, uncomplicated; J40 Bronchitis, not specified as acute or chronic; F14.10 Cocaine abuse, uncomplicated; F12.90 Cannabis use, unspecified, uncomplicated; R94.31 Abnormal electrocardiogram [ECG] [EKG]; F31.9 Bipolar disorder, unspecified; I11.0 Hypertensive heart disease with heart failure; I50.9 Heart failure, unspecified; E78.00 Pure hypercholesterolemia, unspecified; I25.10 Atherosclerotic heart disease of native coronary artery without angina pectoris; I25.2 Old myocardial infarction; M19.90 Unspecified osteoarthritis, unspecified site; Z21 Asymptomatic human immunodeficiency virus [HIV] infection status; Z86.73 Personal history of transient ischemic attack (TIA), and cerebral infarction without residual deficits; Z72.0 Tobacco use
CPT/HCPCS: 71045; 80053; 80307; 82140; 82550; 83690; 84484; 85025; 85610; 85730; 93005; 94664; 96365; 99285; J0456; J7050

== ENCOUNTER 2017-10-08 20:01 | Emergency (ER) | payer OTHER ==
[~2017-10-08 20:01] MED LIST changes: -ALBU8I INH; -ASPI81 CHEW; -ATOR40TA49 PO; +AZIT250T3 PO; -BROM2.5 PO; -CARV12.5 PO; -COLC1TAB7 PO; -DIOV160T8 PO; -ELVITAB PO; -HALO5 PO; -HCTZ25 PO; -INDO50 PO; -ISOS60 PO; -NITR0.4S SL; -OMEP20TA39 PO; -SIME80 PO; -SYMB160A INH
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
[2017-10-08] MEDS ORDERED: OLANZapine IM 10 MG VIAL IM ONE (20:30)
[2017-10-08] MEDS ORDERED: diphenhydrAMINE HCL 50 MG/ML VIAL IM ONE (20:30)
[2017-10-08] MEDS ORDERED: FERR325T18 PO (21:12)
[2017-10-08] MEDS ORDERED: FOLI800T PO (21:12)
[2017-10-08] MEDS ORDERED: HALO5TAB PO (21:12)
[2017-10-08] MEDS ORDERED: FURO40TA PO (21:12)
[2017-10-08] MEDS ORDERED: EMTR1TAB4 PO (21:12)
[2017-10-08] MEDS ORDERED: ASPI81TA23 PO (21:12)
[2017-10-08] MEDS ORDERED: SODI650T PO (21:12)
[2017-10-08] MEDS ORDERED: CARV6.252 PO (21:12)
[2017-10-08] MEDS ORDERED: VENL75TA PO (21:12)
[2017-10-08] MEDS ORDERED: ATOR40TA16 PO (21:12)
[2017-10-08] MEDS ORDERED: DOLU1TAB PO (21:12)
[2017-10-08 21:35] VITALS: BP 129/81; PULSE 85; TEMP 98.5; O2SAT 99
[2017-10-08 22:00] LABS: HEMATOCRIT 45.2 % (39.0-51.0); HEMOGLOBIN 15.1 GM/DL (13.0-17.0); MEAN CELL VOLUME 96.5 FL (80.0-100.0); MEAN CORPUSCULAR HEMOGLOBIN 32.2 PG (27.0-34.0); MEAN CORPUSCULAR HGB CONC 33.4 % (32.0-36.0); MEAN PLATELET VOLUME 9.3 FL (7.0-11.0); PLATELET COUNT 186 TH/MM3 (150-450); RED BLOOD COUNT 4.69 MIL/MM3 (4.50-5.90); RED CELL DISTRIBUTION WIDTH 14.2 % (11.6-17.2); WHITE BLOOD COUNT 3.9 TH/MM3 (4.0-11.0)
[2017-10-08 22:09] LABS: ALT (GPT) 32 U/L (12-78)
[2017-10-08 22:11] LABS: ALKALINE PHOSPHATASE 185 U/L (45-117); TOTAL BILIRUBIN ADULT 0.6 MG/DL (0.2-1.0); TOTAL PROTEIN 8.3 GM/DL (6.4-8.2)
[2017-10-08 22:23] LABS: ALBUMIN 3.5 GM/DL (3.4-5.0); AST (GOT) 45 U/L (15-37); BICARBONATE 24.1 MEQ/L (21.0-32.0); BLOOD UREA NITROGEN 29 MG/DL (7-18); CALCIUM 8.6 MG/DL (8.5-10.1); CHLORIDE 105 MEQ/L (98-107); CREATININE 1.62 MG/DL (0.60-1.30); GLOMERULAR FILTRATION RATE 54 ML/MIN (>89); GLUCOSE,RANDOM 99 MG/DL (74-106); SODIUM (NA) 137 MEQ/L (136-145)
[2017-10-08 22:52] LABS: LYMPHOCYTES 42 % (9-44); MONOCYTES 17 % (0-8); NEUTROPHIL # MANUAL DIFF 1.5 TH/MM3 (1.8-7.7); POLYS (SEG NEUTROPHILS) 39 % (16-70)
[2017-10-09 02:32] VITALS: BP 116/70; PULSE 84; RESP 17; O2SAT 99
[2017-10-09 06:43] VITALS: BP 132/72; PULSE 75; RESP 19; O2SAT 98
[2017-10-09 10:34] VITALS: BP 117/68; PULSE 75; RESP 16; TEMP 98.7; O2SAT 97
--- NOTE | 2017-10-09 10:48 | PD ---
Physical Exam Date Seen by Provider: Oct 09, 2017 Time Seen by Provider: 10:47 Narrative 56-year-old male previously medically cleared for psychiatric evaluation after being Lobo act, has been seen by psychiatric staff, and is felt to need transfer to the [facility] for further psychiatric treatment. Patient remains medically stable for discharge and transfer at this time. Data Data Last Documented VS Vital Signs Date Time Temp Pulse Resp B/P (MAP) Pulse Ox O2 Delivery O2 Flow Rate FiO2 10/09/17 10:34 98.7 75 16 117/68 (84) 97 Room Air Orders Orders Complete Blood Count With Diff (10/08/17 20:12) Comprehensive Metabolic Panel (10/08/17 20:12) Psych Screen (10/08/17 20:12) Diet Regular Basic (10/09/17 Breakfast) Drug Screen, Random Urine (10/08/17 20:12) Alcohol (Ethanol) (10/08/17 20:12) Thyroid Stimulating Hormone (10/08/17 20:20) Olanzapine Inj (Zyprexa Inj) (10/08/17 20:30) Diphenhydramine Inj (Benadryl Inj) (10/08/17 20:30) Restraints Violent (10/08/17 20:42) Labs Laboratory Tests Test 10/08/17 21:22 10/08/17 21:40 Urine Opiates Screen NEG Urine Barbiturates Screen NEG Urine Amphetamines Screen NEG Urine Benzodiazepines Screen NEG Urine Cocaine Screen NEG Urine Cannabinoids Screen NEG White Blood Count 3.9 TH/MM3 Red Blood Count 4.69 MIL/MM3 Hemoglobin 15.1 GM/DL Hematocrit 45.2 % Mean Corpuscular Volume 96.5 FL Mean Corpuscular Hemoglobin 32.2 PG Mean Corpuscular Hemoglobin Concent 33.4 % Red Cell Distribution Width 14.2 % Platelet Count 186 TH/MM3 Mean Platelet Volume 9.3 FL CBC Comment AUTO DIFF Differential Total Cells Counted 100 Neutrophils % (Manual) 39 % Lymphocytes % 42 % Monocytes % 17 % Eosinophils % 2 % Neutrophils # (Manual) 1.5 TH/MM3 Differential Comment FINAL DIFF MANUAL Platelet Estimate NORMAL Platelet Morphology Comment NORMAL Blood Urea Nitrogen 29 MG/DL Creatinine 1.62 MG/DL Random Glucose 99 MG/DL Total Protein 8.3 GM/DL Albumin 3.5 GM/DL Calcium Level 8.6 MG/DL Alkaline Phosphatase 185 U/L Aspartate Amino Transf (AST/SGOT) 45 U/L Alanine Aminotransferase (ALT/SGPT) 32 U/L Total Bilirubin 0.6 MG/DL Sodium Level 137 MEQ/L Potassium Level 4.6 MEQ/L Chloride Level 105 MEQ/L Carbon Dioxide Level 24.1 MEQ/L Anion Gap 8 MEQ/L Estimat Glomerular Filtration Rate 54 ML/MIN Thyroid Stimulating Hormone 3rd Gen 2.170 uIU/ML Ethyl Alcohol Level LESS THAN 3 MG/DL MDM Medical Record Reviewed: Yes Supervised Visit with COREY: Yes Narrative Course 56-year-old male previously medically cleared for psychiatric evaluation after being Lobo act, has been seen by psychiatric staff, and is felt to need transfer to the [facility] for further psychiatric treatment. Patient remains medically stable for discharge and transfer at this time. Diagnosis Primary Impression: Medical clearance for psychiatric admission Disposition: 70 TRANSFER TO OTHER FACILITY Condition: Stable Erickson Emerson Oct 09, 2017 10:48
== END 2017-10-09 16:04 ==
LOC: NEPJ 20:01
DX: F31.9 Bipolar disorder, unspecified (principal); F14.90 Cocaine use, unspecified, uncomplicated; M19.90 Unspecified osteoarthritis, unspecified site; J45.909 Unspecified asthma, uncomplicated; F41.9 Anxiety disorder, unspecified; I13.0 Hypertensive heart and chronic kidney disease with heart failure and stage 1 through stage 4 chronic kidney disease, or unspecified chronic kidney disease; I50.9 Heart failure, unspecified; N18.9 Chronic kidney disease, unspecified; I25.10 Atherosclerotic heart disease of native coronary artery without angina pectoris; M10.9 Gout, unspecified; G81.94 Hemiplegia, unspecified affecting left nondominant side; Z78.1 Physical restraint status; Z79.82 Long term (current) use of aspirin; Z21 Asymptomatic human immunodeficiency virus [HIV] infection status; Z79.899 Other long term (current) drug therapy; Z86.73 Personal history of transient ischemic attack (TIA), and cerebral infarction without residual deficits; Z72.0 Tobacco use
CPT/HCPCS: 80053; 80307; 84443; 85007; 85027; 96372; 99285; J1200